=== PATIENT | female | born 1955 | race Caucasian/White ===

== ENCOUNTER 2025-03-19 08:02 | Day surgery (SDC) | payer MEDICARE, BC ==
[2025-03-19] MEDS: Lactated Ringers 1,000 ML IV SCH (08:34)
[2025-03-19] MEDS ORDERED: fentaNYL 100 MCG/2 ML SDV ONE (09:26)
[2025-03-19] MEDS ORDERED: Propofol 200 MG/20 ML SDV ONE (09:26)
[2025-03-19 11:46] VITALS: BP 118/60; PULSE 53
== END 2025-03-19 11:40 | disposition home or self-care (01) ==
LOC: JP.SDS 08:02
PROVIDERS: ATTEND Surgery
DX: Z12.11 Encounter for screening for malignant neoplasm of colon (principal); C78.5 Secondary malignant neoplasm of large intestine and rectum; C80.1 Malignant (primary) neoplasm, unspecified; K51.40 Inflammatory polyps of colon without complications; R19.5 Other fecal abnormalities; I12.9 Hypertensive chronic kidney disease with stage 1 through stage 4 chronic kidney disease, or unspecified chronic kidney disease; N18.6 End stage renal disease
CPT/HCPCS: 00811-QZ; 88305; 88341; 88342; J2704; J3010; J7120

== ENCOUNTER 2025-07-03 11:55 | Emergency (ER) | payer MEDICARE, BC ==
[2025-07-03 13:57] VITALS: BP 136/78; PULSE 62
== END 2025-07-03 15:10 | disposition home or self-care (01) ==
LOC: JP.ED 11:55
DX: I82.A12 Acute embolism and thrombosis of left axillary vein (principal); I82.B12 Acute embolism and thrombosis of left subclavian vein; I82.C12 Acute embolism and thrombosis of left internal jugular vein; I10 Essential (primary) hypertension; E66.9 Obesity, unspecified; Z79.899 Other long term (current) drug therapy; Z68.31 Body mass index [BMI] 31.0-31.9, adult
CPT/HCPCS: 93971; 99283; A9270